=== PATIENT | female | born 1990 | race Caucasian/White ===

== ENCOUNTER 2020-08-24 06:42 | Emergency (ER) | payer BC ==
[2020-08-24] MEDS ORDERED: Sodium Chloride 0.9% 10 ML Syringe FLUSH PRN (06:59)
--- NOTE | 2020-08-24 07:10 | EDM.PDOC ---
ED HPI GENERAL MEDICAL PROBLEM - General Stated Complaint: NAUSEA; ABDOMINAL PAIN Time Seen by Provider: 08/24/20 06:50 Source of Information: Reports: Patient History Limitations: Reports: No Limitations - History of Present Illness INITIAL COMMENTS - FREE TEXT/NARRATIVE: Patient presented to the ED because of persistent N/V/D which started yesterday and couldn't keep anything down. There is no associated,fever,chills, cough or cold symptoms. She c/o epigastric pain especially after vomiting. ABDOMEN PAIN Pain Score (Numeric/FACES): 8 - Related Data Allergies Allergy/AdvReac Type Severity Reaction Status Date / Time No Known Allergies Allergy Verified 08/24/20 07:21 Home Meds: Home Meds Ondansetron [Zofran ODT] 4 mg PO Q4H PRN #5 tab.dis 08/24/20 [Rx] Potassium Chloride [Klor-Con M20] 40 meq PO TID #6 tab.er 08/24/20 [Rx] ED ROS GENERAL - Review of Systems Review Of Systems: See Below Constitutional: Reports: No Symptoms HEENT: Reports: No Symptoms Respiratory: Reports: No Symptoms Cardiovascular: Reports: No Symptoms Endocrine: Reports: No Symptoms GI/Abdominal: Reports: Abdominal Pain, Diarrhea, Nausea, Vomiting : Reports: No Symptoms Musculoskeletal: Reports: No Symptoms Skin: Reports: No Symptoms Neurological: Reports: No Symptoms Psychiatric: Reports: No Symptoms ED EXAM, GI/ABD - Physical Exam Exam: See Below Exam Limited By: No Limitations General Appearance: Alert, No Apparent Distress Ears: Normal External Exam, Normal Canal Nose: Normal Inspection, Normal Mucosa, No Blood Throat/Mouth: Normal Inspection, Normal Lips, Normal Teeth Head: Atraumatic, Normocephalic Neck: Normal Inspection, Supple, Non-Tender, Full Range of Motion Respiratory/Chest: No Respiratory Distress, Lungs Clear, Normal Breath Sounds, No Accessory Muscle Use, Chest Non-Tender Cardiovascular: Normal Peripheral Pulses, Regular Rate, Rhythm, No Edema, No Gallop, No JVD, No Murmur, JVD GI/Abdominal Exam: Soft (hyperactive BS, epigastric tenderness), No Distention, No Abnormal Bruit, Other Back Exam: Normal Inspection, Full Range of Motion Extremities: Normal Inspection, Normal Range of Motion, Non-Tender Course - Vital Signs Text/Narrative:: Lab result was reviewed and discussed with patient NS 1 L bolus Zofran 4 mg IV x1 Toradol 30 mg IV x1 Last Recorded V/S: Last Vital Signs Temp 36.7 C 08/24/20 06:45 Pulse 90 08/24/20 08:25 Resp 18 08/24/20 08:25 BP 97/59 L 08/24/20 08:25 Pulse Ox 100 08/24/20 08:25 - Orders/Labs/Meds Orders: Active Orders 24 hr Category Date Time Status Saline Lock Insert [OM.PC] Routine Oth 08/24/20 06:59 Ordered Labs: Laboratory Tests 08/24/20 08/24/20 Range/Units 07:10 07:10 WBC 12.5 H (3.0-10.3) x10-3/uL RBC 5.50 H (3.60-5.20) x10(6)uL Hgb 15.6 H (11.4-15.5) g/dL Hct 47.1 (34.2-48.2) % MCV 85.8 (76.7-100.5) fL MCH 28.4 (23.9-33.9) pg MCHC 33.1 (31.9-34.8) g/dL RDW 12.8 (12.3-16.5) % Plt Count 261 (151-488) x10(3)uL MPV 8.4 (7.1-12.4) fL Add Manual Diff Yes Neutrophils % (Manual) 94 H (46-82) % Lymphocytes % (Manual) 3 L (13-37) % Monocytes % (Manual) 3 L (4-12) % Sodium 138 (135-145) mmol/L Potassium 3.8 (3.5-5.3) mmol/L Chloride 104 (100-110) mmol/L Carbon Dioxide 19 L (21-32) mmol/L BUN 16 (7-18) mg/dL Creatinine 0.9 (0.55-1.02) mg/dL Est Cr Clr Drug Dosing 86.34 mL/min Estimated GFR (MDRD) > 60 (>60) BUN/Creatinine Ratio 17.8 (9-20) Glucose 150 H (80-116) mg/dL Calcium 8.9 (8.6-10.2) mg/dL Meds: Medications Discontinued Medications Generic Name Dose Route Start Last Admin Trade Name Freq PRN Reason Stop Dose Admin Sodium Chloride 1,000 mls @ 999 mls/hr 08/24/20 07:00 08/24/20 07:30 Normal Saline IV 999 mls/hr ASDIRECTED EL Administration Ketorolac Tromethamine 30 mg 08/24/20 07:10 08/24/20 07:32 Ketorolac 30 Mg/Ml Sdv IVPUSH 08/24/20 07:11 30 mg NOW STA Administration Ondansetron HCl 4 mg 08/24/20 06:59 08/24/20 07:30 Ondansetron 4 Mg/2 Ml Sdv IVPUSH 08/24/20 07:00 4 mg NOW STA Administration Potassium Chloride 40 meq 08/24/20 07:11 08/24/20 08:25 Potassium Chloride 20 Meq Tab.Er PO 08/24/20 07:12 40 meq NOW STA Administration Sodium Chloride 10 ml 08/24/20 06:59 Sodium Chloride 0.9% 10 Ml Syringe FLUSH ASDIRECTED PRN Keep Vein Open Departure - Departure Time of Disposition: 08:30 Disposition: Home, Self-Care 01 Condition: Good Clinical Impression: Gastroenteritis - Discharge Information Prescriptions: Potassium Chloride [Klor-Con M20] 40 meq PO TID #6 tab.er Ondansetron [Zofran ODT] 4 mg PO Q4H PRN #5 tab.dis PRN Reason: Nausea Instructions: Viral Gastroenteritis, Adult, [id number], Diarrhea, Adult, [id number] Referrals: Corby Pierre MD [Primary Care Provider] - Forms: ED Department Discharge Additional Instructions: Please read discharge instructions on vial gastroenteritis frequent hand washing increase oral fluids at least 2 liters daily klor con 20 meq, take 2 tablets 3 times daily for 2 days zofran/odansetron 4 mg every 4 hours as needed for nausea imodium(over the counter) 2 tablets every 4-7 hours as needed for diarrhea Ibuprofen 800 mg with tylenol 1000 mg every 8 hours as needed for pain follow up as needed Sepsis Event Note (ED) - Focused Exam Vital Signs: Vital Signs Temp Pulse Resp BP Pulse Ox 08/24/20 08:25 90 18 97/59 L 100 08/24/20 06:45 36.7 C 88 20 128/71 96 - My Orders Last 24 Hours: My Active Orders 08/24/20 06:59 Saline Lock Insert [OM.PC] Routine - Assessment/Plan Last 24 Hours: My Active Orders 08/24/20 06:59 Saline Lock Insert [OM.PC] Routine
[2020-08-24] MEDS: Sodium Chloride 0.9% 1,000 ML IV SCH (07:30)
[2020-08-24] MEDS: Ondansetron 4 MG/2 ML SDV IVPUSH STA (07:30)
[2020-08-24] MEDS: Ketorolac 30 MG/ML SDV IVPUSH STA (07:32)
[2020-08-24] MEDS: Potassium Chloride 20 MEQ Tab.ER PO STA (08:25)
== END 2020-08-24 08:28 | disposition home or self-care (01) ==
LOC: FB.ED 06:42
DX: K52.9 Noninfective gastroenteritis and colitis, unspecified (principal)
CPT/HCPCS: 36415; 80048; 85025; 96374; 96375; 99284; A9270; J1885; J2405; J7030